=== PATIENT | male | born 1980 | race Hispanic/Latino ===

== ENCOUNTER 2017-02-12 22:14 | Emergency (ER) | payer OTHER ==
[2017-02-12 22:20] VITALS: BP 157/102; PULSE 82; RESP 16; TEMP 96.3; O2SAT 100
[2017-02-12] MEDS ORDERED: Lidocaine 1% Inj (20ml) IJ ONE (22:24)
--- NOTE | 2017-02-12 22:27 | ED PDOC ---
HPI: General Adult Time Seen by Provider: 02/12/17 22:25 Chief Complaint (Nursing): Abnormal Skin Integrity Chief Complaint (Provider): finger laceration History Per: Patient (36 y/o male here with left thumb injury that occurred today 1 hour prior to ED arrival while cleaning sink drain. NOtes persistent bleeding despite application of pressure to wound. Tetanus vaccine 5-6 years ago.) Past Medical History Reviewed: Historical Data, Nursing Documentation, Vital Signs Vital Signs: Last Vital Signs Temp 96.3 F L 02/12/17 22:16 Pulse 82 02/12/17 22:16 Resp 16 02/12/17 22:16 BP 157/102 H 02/12/17 22:16 Pulse Ox 100 02/12/17 22:39 - Family History Family History: States: No Known Family Hx - Allergies Allergies/Adverse Reactions: Allergies Allergy/AdvReac Type Severity Reaction Status Date / Time Penicillins Allergy RASH Verified 02/12/17 22:16 Review of Systems ROS Statement: Except As Marked, All Systems Reviewed And Found Negative Physical Exam - Reviewed Nursing Documentation Reviewed: Yes Vital Signs Reviewed: Yes - Physical Exam Appears: Positive for: Well, Non-toxic, No Acute Distress Head Exam: Positive for: ATRAUMATIC, NORMAL INSPECTION, NORMOCEPHALIC Skin: Positive for: Normal Color, Warm, DRY Eye Exam: Positive for: EOMI, Normal appearance, PERRL ENT: Positive for: Normal ENT Inspection Neck: Positive for: Normal, Painless ROM Cardiovascular/Chest: Positive for: Regular Rate, Rhythm Respiratory: Positive for: CNT, Normal Breath Sounds Gastrointestinal/Abdominal: Positive for: Normal Exam, Bowel Sounds, Soft Back: Positive for: Normal Inspection Extremity: Positive for: Normal ROM, Other (1.25 cm laceration noted dorsal surface distal tip of left thumb) Neurologic/Psych: Positive for: Alert, Oriented - ECG O2 Sat by Pulse Oximetry: 100 - Progress ED Course And Treament: Tdap 0.5 ml IM x 1 dose Disposition - Clinical Impression Clinical Impression: Finger laceration - Patient ED Disposition Is Patient to be Admitted: No - Disposition Disposition: Routine/Home Disposition Time: 23:02 Condition: FAIR Additional Instructions: RETURN IN 7 TO 10 DAYS FOR REMOVAL OF SUTURES Instructions: Finger Laceration (ED) Forms: [employer] ([place]) Procedure: Wound Repair - Time Performed Time Performed: 22:39 - Time Out Time Out: Site verified - Consent Obtained Consent obtained: Verbal - Performed by Performed by: Mid-level Provider - Indications Indication(s):: Laceration - Location Location:: Left, Hand Finger:: Left, Thumb Shape:: Linear Dimensions Length cm: 1.25cm Depth:: Epidermis - Anesthetic Technique Anesthetic Technique: Regional block Local/Regional Anesthetic:: Lidocaine 1% - Irrigated Irrigated with ml of normal saline: 150ml - Complexity Complexity:: Simple (one layer) - Wound repair method Sutures:: # (three 5-0 nylon)
== END 2017-02-12 23:15 | disposition home or self-care (01) ==
LOC: H.ER 22:14
DX: S61.219A Laceration without foreign body of unspecified finger without damage to nail, initial encounter (principal); W45.8XXA Other foreign body or object entering through skin, initial encounter; Y93.E9 Activity, other interior property and clothing maintenance